=== PATIENT | female | born 2000 | race African-American/Black ===

== ENCOUNTER 2023-10-21 12:40 | Outpatient (CLI) | payer OTHER, SELFPAY | END 2023-10-21 12:41 | disposition home or self-care (01) | LOC: NFLDREF 10-25 22:36 | PROVIDERS: Visit Provider Nurse Practitioner Family | DX: N30.01 Acute cystitis with hematuria (principal); B96.20 Unspecified Escherichia coli [E. coli] as the cause of diseases classified elsewhere | CPT/HCPCS: 87077; 87086; 87186 ==